=== PATIENT | male | born 1975 | race Caucasian/White ===

== ENCOUNTER → 2020-05-18 14:21 | Outpatient (CLI) | payer OTHER, SELFPAY ==
--- NOTE | ~2020-05-18 | MR_ITS ---
EXAMINATION: MR shoulder RT wo con DATE: 05/18/2020 15:02 INDICATION: Closed dislocation of the right shoulder. Hill-Sachs fracture. TECHNIQUE: Magnetic resonance imaging (MRI) of the right shoulder was performed without intravenous c ontrast. Sequences included axial PD-weighted FS FSE, coronal oblique PD-weighted FS FSE, coronal obl ique T2-weighted FS FSE, sagittal PD-weighted FS FSE, and sagittal T1-weighted SE. COMPARISON: None. FINDINGS: Coracoacromial arch: The acromion undersurface is curved in morphology (type II). The coracoacromial ligament is normal. M inimal acromioclavicular osteoarthritis. Rotator cuff: Mild supraspinatus tendinopathy without discrete tear. The infraspinatus, teres minor and subscapular is tendons are normal. Normal rotator cuff muscle bulk and signal. Bones: Bone alignment is normal. Prominent marrow edema and low signal intensity impaction fracture line und erlying a prominent Hill-Sachs fracture trough along the posterolateral aspect of the femoral head wh ich involves the posterior margin of the articular surface. Minimal marrow edema along the anteroinfe rior glenoid without corresponding osseous Bankart fracture. Marrow signal is otherwise normal. Biceps tendon, glenoid labrum and glenohumeral cartilage: Long head of the biceps tendon is normal. Diffuse circumferential tear of the glenoid labrum with juliet ear increased signal extending peripherally into the substance of the labrum. There is a Bankart lesi on with tear at the base of the anteroinferior glenoid labrum including some periosteal stripping and disruption of the glenoid attachment of the inferior glenohumeral ligament, extension of the tear in to the cartilage along the anterior and anteroinferior rim of the glenoid and at least partial tear o f the central portion of the middle glenohumeral ligament. There is a thin linear flap of soft tissue extends along the anterior margin of the glenoid inferiorly from the anterosuperior glenoid and favo r torn labral tissue over a cartilage flap. Remaining glenohumeral cartilage is normal. Fluid: Small glenohumeral joint effusion with proportional extension of a small amount of fluid into the stephy g head biceps tendon sheath. Mild increased fluid signal in the subacromial/subdeltoid bursa consist ent with minimal bursitis. IMPRESSION: 1. Findings consistent with anterior glenohumeral dislocation including a Hill-Sachs fracture trough and corresponding soft tissue Bankart lesion at the anteroinferior glenoid with involvement of the mi ddle and anterior inferior glenohumeral ligaments as well as the cartilage along the anterior to ante roinferior rim of the glenoid. 2. More extensive essentially circumferential tear of the glenoid labrum which could be related to th e dislocation injury or prior tearing. 3. Mild supraspinatus tendinopathy without discrete tear. Reviewed, dictated and finalized at location B. IMPRESSION: 1. Findings consistent with anterior glenohumeral dislocation including a Hill- Sachs fracture trough and corresponding soft tissue Bankart lesion at the anter oinferior glenoid with involvement of the middle and anterior inferior glenohum eral ligaments as well as the cartilage along the anterior to anteroinferior ri m of the glenoid. 2. More extensive essentially circumferential tear of the glenoid labrum which could be related to the dislocation injury or prior tearing. 3. Mild supraspinatus tendinopathy without discrete tear.
== END ==
DX: S43.004A Unspecified dislocation of right shoulder joint, initial encounter (principal); X58.XXXA Exposure to other specified factors, initial encounter
CPT/HCPCS: 73221